=== PATIENT | male | born 1955 | race Caucasian/White ===

== ENCOUNTER 2021-12-23 08:15 | Observation (INO) ==
--- NOTE | 2021-12-20 14:44 | Anesthesiology Consultation ---
Date of Service December 20, 2021 Assessment & Plan (1) Encounter for pre-operative examination: - COVID screening: Per assessment on 12/20: Travel screen negative, no known COVID-19 positive contacts or current COVID-19 related symptoms. Surgeon arranging preop COVID testing. Awaiting results. - BP check: per nurse note from PCP office (12/05/21): "Pt here today for bp check.Pt refused to wait 5 mins after being brought back the [facility].. today's bp was 178/88, pulse 88. Pt refused to stay until I checked w/ provider as he was in a hurry.. He states he has not taken Amlodipine for past week. He states this makes him feel "antsy" and cannot take it. Apparently his insurance would no longer pay for bp med that worked for him and he was made to try this." Spoke with patient 12/20/21. He says that since that BP check, he was able to go back on his previous BP med that he was well controlled on for several years (was stopped temporarily d/t insurance coverage issues). Since restarting olmesartan, patient reports home BP readings have been significantly improved. Chart Review Chart Review: Acceptable Risk for Surgery and Patient NOT seen in Pre Admission Testing History Surgery Operation Date: 12/23/21 10:40 Proposed Procedures p Right Total Knee Revision - Дмитрий Rose MD Height/Weight Height: 5 ft 6 in Weight: 79.832 kg Allergies Allergy/AdvReac Type Severity Reaction Status Date / Time etodolac Allergy Unknown Itchy, Verified 12/20/21 14:31 diarrhea Penicillins Allergy Unknown Itchy Verified 12/20/21 14:31 Medications Home Medications Medication Instructions Recorded Confirmed Last Taken sulindac 150 mg tablet 150 mg PO BID #180 tab 08/31/21 12/20/21 Unknown kgtxghc-[id number]-bxtplgnx 250 1 tab PO Q6H PRN 12/20/21 12/20/21 Unknown mg-250 mg-65 mg tablet (Excedrin Migraine) ibuprofen 200 mg capsule 400 - 800 mg PO Q6H PRN 12/20/21 12/20/21 Unknown olmesartan 20 mg tablet (Benicar) 20 mg PO QAM 12/20/21 12/20/21 Unknown Past Medical History Medical History Arthritis Dyslipidemia Fatty liver H/O renal calculi Passed without intervention, no recent issues History of COVID-19 Dx 05/18/21 [facility] > symptoms at time: loss of smell, fever, SOB > resolved Hypertension Migraine HX PVC (premature ventricular contraction) Remote hx 2+ years ago s/p unremarkable stress echo, no recent issues Tremor Right hand, no definitive etiology per previous neurology evaluation Vertigo HX Past Family History Family History Sister Myocardial infarction Family history of diabetes mellitus Father Bladder cancer Family history of diabetes mellitus Denies family history of Ovarian cancer Prostate cancer Breast cancer Colorectal cancer Past Surgical History Surgical History H/O arthroscopy of knee right H/O colonoscopy H/O thumb surgery Partial amputation repair History of cholecystectomy History of total right knee replacement S/P appendectomy Social History Smoking Status: Never smoker Do You Dip or Chew Tobacco: No Hx Alcohol Use: No Hx Substance Use: No substance use type: does not use Lab Results Anesthesia Preop Results Results Anesthesia Widget: WBC 5.50 K/uL (4.8-10.8) 12/05/21 Hgb 16.4 g/dL (14.0-18.0) 12/05/21 Hct 46.8 % (42-52) 12/05/21 Plt 189 K/uL (130-400) 12/05/21 Na 140 mmol/L (136-145) 12/05/21 K 3.5 mmol/L (3.5-5.1) 12/05/21 Cl 106 mmol/L (98-107) 12/05/21 CO2 26 mmol/L (21-32) 12/05/21 BUN 15 mg/dl (6-23) 12/05/21 Creat 1.02 mg/dl (0.6-1.4) 12/05/21 Glucose Level 97 mg/dl (70-99(Fasting)) 12/05/21 PT 10.9 Seconds (9.0-12.0) 12/05/21 INR 1.0 (0.9-1.1) 12/05/21 Blood Type AB Positive 12/05/21 Antibody Screen NEGATIVE 12/05/21 Testing Electrocardiogram Date: 04/28/21 Findings:+ NSR @ (69bpm) Normal EKG per cardio. Chest X-Ray Date: 04/28/21 Findings:+ NAD Rounded nodular opacity projects over the left lung base measuring 12 mm is suggestive of a probable nipple shadow. Stress Test Date: 03/21/19 Type:exercise Resting LV Function:normal Valvular Disease:no significant valvular disease Negative exercise stress echocardiogram and EKG for ischemia at 89% MPHR. Normal BP response with exercise. Ventricular ectopy developing during exercise. This proceeded to ventricular bigeminy. At peak exercise the ventricular ectopy ceased. No significant ventricular ectopy in recovery phase. Rare PVCs in the later stages of recovery. Ventricular ectopic he was asymptomatic. Mild concentric LVH; grade 1 diastolic dysfunction. Normal chamber dimensions.
[~2021-12-23 08:15] MED LIST: ACETAMINOPHEN 500 MG TAB PO SCH; BUPIVACAINE 0.5 % 5 MG/1 ML PF 10ML VIAL ONE; BUPIVACAINE LIPOSOME/PF 266 MG, BUPIVACAINE/EPINEPHRINE 50 ML, SODIUM CHLORIDE 0.9% 30 ... INFIL SCH; EPINEPHrine INJ 1 MG/ML AMP ONE; FAMOTIDINE 20 MG TAB PO SCH; GABAPENTIN 300 MG CAP PO SCH; LR 500ML BOLUS, THEN 15ML/HR IV SCH; LR 60ML/HR IV SCH; METOCLOPRAMIDE HCL 10 MG TABLET PO SCH; ROPIVACAINE 0.5% 5 MG/ML 30 ML VIAL ONE; Scopolamine 1 MG TDSY TD SCH; TRANEXAMIC ACID 1,000 MG **IV Intra-op IV SCH; ceFAZolin 2000MG 2,000 MG/15 ML SYR IV SCH
--- NOTE | 2021-12-23 08:54 | History & Physical Bridge Note ---
Date of Service December 23, 2021 History & Physical Bridge Note I have examined the patient, reviewed the History & Physical and in the interval since the performance of the History & Physical I have noted the following changes of clinical significance: no changes noted
[2021-12-23] MEDS ORDERED: MIDAZOLAM HCL 1 MG/ML 2ML VIAL ONE (09:45)
[2021-12-23] MEDS ORDERED: fentaNYL citrate 100 MCG/2 ML VIAL ONE (09:46)
[2021-12-23] MEDS ORDERED: VANCOMYCIN HCL 1000MG/20ML VIAL ONE (11:16)
[2021-12-23] MEDS ORDERED: SODIUM CHLORIDE 0.9% PF 50 ML VIAL ONE (11:16)
[2021-12-23] MEDS ORDERED: BUPIVACAINE LIPOSOME 1.3% 266 MG/20 ML VIAL ONE (11:17)
[2021-12-23] MEDS ORDERED: EPINEPHrine INJ 1 MG/ML AMP ONE (11:18)
[2021-12-23] MEDS ORDERED: BUPIVACAINE 0.25% 30 ML VIAL ONE (11:18)
[2021-12-23] MEDS ORDERED: PROPOFOL IV EMULSION 10 MG/ML 20 ML VIAL IV ONE (12:35)
[2021-12-23] MEDS ORDERED: ATROPINE SULFATE 0.1 MG/ML 10ML SYR IV PRN (13:10)
[2021-12-23] MEDS ORDERED: ePHEDrine sulfate 50 MG/ML AMP IV PRN (13:10)
[2021-12-23] MEDS ORDERED: KETOROLAC 30 MG/ML VIAL ONE (13:33)
--- NOTE | 2021-12-23 14:20 | Operative Report ---
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 There is moderate synovitis at best. The tibial tray was clearly loose and debonded from the underlying cement distally. The femoral component and the patella components. Well fixed. Specimens Right knee synovium sent for frozen section. Right knee joint fluid sent for stat Gram stain aerobic and anaerobic culture. Anesthesia Type Spinal MAC Complications none Disposition Accompanied Patient To Recovery: No Indications Patient is a 66-year-old gentleman now about 7 and half years out from right knee replacement. He did pretty well for the first 6 years later the past year to year and a half he has developed pain discomfort and swelling in his knee. X-rays showed loosening of the tibial tray. He had an extensive infectious work-up on 2 separate occasions which was all negative. He failed conservative care. The elected proceed with revision of the knee. Was felt that just the tibial component was loose. Description of Procedure The patient was taken the operating, identified, placed in the operating table supine position protectors were properly padded. IV antibiotics are by by the anesthesia team. A spinal anesthetic been implemented holding area. Esqueda cath was placed in sterile fashion. Right thigh tourniquet was then placed in the right lower extremities and prepped draped in usual sterile fashion. The right leg was elevated exsanguinated with use of an Esmarch in terms playset 3 mmHg. An anterior approach of the right knee was then performed using the previous incision. Sharp dissection carried through subcutaneous this down the extensor mechanism. Medial parapatellar arthrotomy incision was made. Some subperiosteal dissection was carried out medially. I did a complete synovectomy of the suprapatellar pouch along with the medial lateral gutters. We did send the synovium for frozen section which revealed no polys per high-power field. We did send some fluid off for stat Gram stain and aerobic and anaerobic culture. The knee was then flexed. The polyethylene was removed. I then examined the femoral component and appeared very well fixed. There is no signs of loosening. We exposed the tibia. It was clearly loose. This was removed without difficulty. I then spent some time chipping away and moving removing the retained cement in the tibia. Once this was all removed we went to preparing the tibia. The tibia was entered with the 10 mm reamer. I then reamed up to a size 15. The reamer was left in place and the cutting guide was placed. This was cut essentially flush with the most deficient aspect the posterior medial tibial plateau. This did take a fairly large piece off laterally. Great care was taken to protect the patella tendon insertion. We then sized the tibia to a size 71. It was prepared for a 2.5 mm offset stem with a small black cruciate wing. We then trialed the knee in the was fairly lax and the gap was fairly large so I did place 5 mm augments on both sides of the tibia. Doing this the 16mm insert fit most appropriately. We elect to place these implants. All trial implants were removed. I irrigated the wound extensively. A double batch of Palacos G cement was mixed with a additional gram of vancomycin to the revision surgery. A Biomet size 71 tibial tray with a 15 x 80 mm offset stem with a 2.5 mm offset and a small cruciate wing was then placed. This was brought in to full extension after we placed a a 16 mm posterior stabilized polyethylene trial. We held the knee in extension total cement hardened. Final cement check was then performed. We did check this again and then removed the trial poly and placed a permanent poly-. The end subcutaneous is in deep tissues were then injected with a total of 100 cc of a combination of 20 cc of Exparel, 30 cc normal saline, 50 cc of quarter percent Marcaine with epinephrine. Patient did receive 1 g tranexamic acid. The tourniquet was then let down for final turn time 91 minutes. Hemostasis assured use electrocautery. The wounds once again irrigated. The patella tracked nicely. I then repaired the extensor mechanism with a combination 1 PDS suture #1 Vicryl suture in a [id number] fashion. The extensor mechanism checked found to be intact with subcutaneous tissue then closed with 2 Dexon suture in a buried knot fashion skin was closed skin kristen. Leg was then cleaned and dried a sterile dressing with Xeroform, 4 fours, sterile cast padding, Calderon bandage were applied. Patient then transferred to the recovery room in stable condition. Patient tolerated procedure well and there were no complications. Markie Caballero, my physician paperhanger assistant, was present for the entire procedure. His assistance was essential and required for appropriate patient positioning, prepping and draping, surgical exposure, performing the technical details of the operation, placement the implants, closure of the wound, and placement of the sterile bandage. I attest to the content of the Intraoperative Record and any orders documented therein. Any exceptions are noted below.
--- NOTE | 2021-12-23 14:46 | Anesthesiology Progress Note ---
Date of Service December 23, 2021 Anesthesia Post Procedure Vital Signs Vital Signs: Temp Pulse Pulse Resp BP Pulse Ox 12/23/21 14:40 92 H 15 132/64 94 12/23/21 14:30 85 17 116/62 91 12/23/21 14:20 86 15 112/59 L 94 12/23/21 14:10 36.2 C L 90 12 115/53 L 94 12/23/21 09:06 36.8 C 80 20 157/84 H 97 12/23/21 08:49 36.8 C Transfer of Care Handoff Completed per policy Notes Mental Status: alert / awake / arousable Patient Amnestic to Procedure: Yes Nausea / Vomiting: adequately controlled Pain: adequately controlled Airway Patency, RR, SpO2: stable & adequate BP & HR: stable & adequate Hydration State: stable & adequate Neuraxial Anesthesia: was administered and sensory block is resolving Anesthetic Complications: no major complications apparent
--- NOTE | 2021-12-23 14:51 | XRay Report ---
XR knee RT 1 or 2V routine CLINICAL HISTORY: Postoperative evaluation. COMPARISON: Knee radiographs December 05, 2021. FINDINGS: Alignment of the right knee arthroplasty is noted. Revision of the tibial component is not ed. There is no periprosthetic fracture or unexpected radiopaque foreign body. Skin kristen are prese nt. IMPRESSION: Expected findings following revision right knee arthroplasty. ACT 112: Negative or not required by law. Electronically signed by: Zafar Baca M.D. 12/23/2021 2:49 PM
[2021-12-23] MEDS ORDERED: HYDROmorphone INJ 0.5 MG/0.5 ML SYR IV PRN (15:31)
[2021-12-23] MEDS ORDERED: NALOXONE HCL 0.4 MG/1 ML VIAL/CARP IV PRN (15:31)
[2021-12-23] MEDS ORDERED: ONDANSETRON INJ 2 MG/ML 2 ML VIAL IV PRN (15:31)
[2021-12-23] MEDS ORDERED: METOCLOPRAMIDE HCL INJ 5 MG/ML 2 ML VIAL IV PRN (15:31)
[2021-12-23] MEDS ORDERED: ONDANSETRON 4 MG OD TAB PO PRN (15:31)
[2021-12-23] MEDS ORDERED: ALUMINUM/MAGNESIUM SUSP 30 ML UDC PO PRN (15:31)
[2021-12-23] MEDS ORDERED: NON-FORMULARY MEDICATION (Aspirin-Acetaminophen-Caffeine [Excedrin Migraine] 250-250-65 mg PO PRN (15:31)
[2021-12-23] MEDS ORDERED: bisacodyL 10 MG SUPP PR PRN (15:31)
[2021-12-23] MEDS ORDERED: MAGNESIUM HYDROXIDE SUSP 30 ML UDC PO PRN (15:31)
[2021-12-23] MEDS: SODIUM CHLORIDE 0.9% 1000ML 1,000 ML IV SCH (16:09)
[2021-12-23] MEDS: Scopolamine CHECK PATCH PLACEMENT SCH ×2 (16:10→23:16)
[2021-12-23] MEDS: ceFAZolin 2000MG 2,000 MG/15 ML SYR IV SCH (17:23)
[2021-12-23] MEDS: ASCORBIC ACID 500 MG TAB PO SCH (17:23)
[2021-12-23] MEDS: KETOROLAC TROMETHAMINE 15 MG/ML VIAL IV SCH ×2 (17:25→23:15)
--- NOTE | 2021-12-23 17:28 | Progress Notes ---
DATE OF SERVICE: 12/23/2021 Postop check. SUBJECTIVE: A 66-year-old gentleman status post right knee revision arthroplasty for aseptic tibial loosening. He is doing well. Has some jojq-gh-obqjgbuw pain. No chest pain or shortness of breath. Not feeling dizzy or lightheaded. OBJECTIVE: VITAL SIGNS: Temperature 36.5. Vital signs are stable. GENERAL: Shows a pleasant middle-aged male. He is sitting up in bed, looks quite comfortable. LUNGS: Clear to auscultation. HEART: Has a regular rate and rhythm. ABDOMEN: Soft, nontender, nondistended. EXTREMITIES: Grossly neurovascularly intact except as follows: Examination of the right leg reveals the leg to be well aligned. Toes are pink with brisk refill. He can dorsiflex and plantarflex his foot, but it is still just a little bit weak. X-RAYS: X-rays of the right knee from recovery room are reviewed. It shows a revision total knee re placement with a tibial stem. Component alignment looks good. No signs of problems. ASSESSMENT: A 66-year-old gentleman postoperative from a right knee revision for aseptic tibial loos ening. Doing well. His pain is controlled. He is neurologically intact. He is still a little bit weak, but nerve function seems to be returning appropriately. PLAN: 1. DVT prophylaxis includes thigh-high TEDs, SCDs, and aspirin twice a day. 2. PT, OT, weightbear as tolerated. Right total knee protocol. 3. Pain control, doing okay with current pain regimen. 4. IV antibiotics x24 hours. 5. Disposition: Plan to discharge to home with some home health likely tomorrow if he does okay in therapy. Job ID: [id number]
[2021-12-23] MEDS: oxyCODONE HCL IR 5 MG TAB (IMMEDIATE RELEASE) PO PRN (18:26)
[2021-12-23] MEDS ORDERED: TRANEXAMIC ACID / 0.7% NACL 1,000 MG/100 ML BAG IV SCH (20:30)
[2021-12-23] MEDS: DOCUSATE SODIUM 100 MG CAP PO SCH (20:31)
[2021-12-23] MEDS: ASPIRIN 81 MG ECTAB PO SCH (20:32)
[2021-12-23] MEDS: TAPENTADOL HCL ER 50 MG TABCR PO SCH (20:34)
[2021-12-23] MEDS ORDERED: SENNA 8.6 MG TAB PO SCH (21:00)
[2021-12-23] MEDS: ACETAMINOPHEN 500 MG TAB PO SCH (21:16)
[2021-12-24] MEDS: SODIUM CHLORIDE 0.9% 1000ML 1,000 ML IV SCH (01:41)
[2021-12-24] MEDS: ceFAZolin 2000MG 2,000 MG/15 ML SYR IV SCH (04:13)
[2021-12-24 05:46] LABS: Hematocrit (blood only) 40.6 % (42-52); Mean Corpuscular Hgb Conc 34.5 g/dL (32-36); Mean Corpuscular Volume 92.9 fL (80-100); Mean Platelet Volume 11.1 fL (7.4-10.4); Platelet Count 160 K/uL (130-400); RDW Coefficient of Variation 12.1 % (11.5-14.5); RDW Standard Deviation 41.3 fL (36.4-46.3); Red Blood Count 4.37 M/uL (4.7-6.1); White Blood Count 6.45 K/uL (4.8-10.8)
[2021-12-24 06:12] LABS: BUN Creatinine Ratio 18.4 (10-20); Creatinine Clr Calc Pharmacy 82.6 ml/min; Est GFR (African American) 87.3 ml/min; Est GFR (Non-African American) 75.3 ml/min; Potassium 3.9 mmol/L (3.5-5.1)
[2021-12-24] MEDS: ACETAMINOPHEN 500 MG TAB PO SCH (06:18)
[2021-12-24] MEDS: KETOROLAC TROMETHAMINE 15 MG/ML VIAL IV SCH ×2 (06:18→11:22)
[2021-12-24] MEDS ORDERED: dexAMETHasone 10 MG in SYRINGE 0 ML IV SCH (08:00)
[2021-12-24] MEDS: Scopolamine CHECK PATCH PLACEMENT SCH (08:36)
[2021-12-24] MEDS: ASPIRIN 81 MG ECTAB PO SCH (08:36)
[2021-12-24] MEDS: DOCUSATE SODIUM 100 MG CAP PO SCH (08:36)
[2021-12-24] MEDS: ASCORBIC ACID 500 MG TAB PO SCH (08:36)
[2021-12-24] MEDS: TAPENTADOL HCL ER 50 MG TABCR PO SCH (08:36)
[2021-12-24] MEDS ORDERED: DOCUSATE SODIUM/SENNA 50/8.6MG TAB PO SCH (09:00)
[2021-12-24] MEDS ORDERED: TAMSULOSIN HCL 0.4 MG CAP PO SCH (09:00)
[2021-12-24] MEDS ORDERED: OLMESARTAN MEDOXOMIL 20 MG TAB PO SCH (09:00)
[2021-12-24] MEDS ORDERED: MULTIVITAMIN TAB PO SCH (09:00)
--- NOTE | 2021-12-24 09:01 | Progress Notes ---
DATE OF SERVICE: 12/27/2021. SUBJECTIVE: A 66-year-old gentleman, postoperative day 1 from right knee revision of a loose tibial component. He is doing well this morning. Had good night. Pain is controlled. No chest pain or sh ortness of breath. Not feeling dizzy or lightheaded. OBJECTIVE: VITAL SIGNS: Temperature is 36.5. Vital signs are stable. GENERAL: Shows a pleasant middle-aged male. He is lying in bed, looks quite comfortable. EXTREMITIES: Examination of the right leg reveals the leg to be well aligned. Dressing is clean, dr y and intact. No drainage. He can do a straight leg raise. He can dorsiflex and plantarflex his fo ot appropriately. LABORATORY DATA: Hemoglobin 14.0. Hematocrit 40.6. Electrolytes are stable. Gram stains show many polys, but no organisms seen. ASSESSMENT: A 66-year-old gentleman postoperative day 1 from a right knee revision for a loose tibia l component, doing well. Pain is controlled. He is neurologically intact. The suspicion for infect ion is low. PLAN: 1. DVT prophylaxis includes thigh-high TEDs, SCDs, and aspirin twice a day. 2. PT, OT, weightbear as tolerated. Right total knee protocol. 3. Pain control, doing well with current pain regimen. 4. Disposition: Plan is to discharge to home after therapy today. Job ID: [id number]
[2021-12-24] MEDS: oxyCODONE HCL IR 5 MG TAB (IMMEDIATE RELEASE) PO PRN (11:23)
--- NOTE | 2021-12-28 11:20 | Discharge Summary ---
Date of Service December 28, 2021 Discharge Data Procedures Performed Operation Date: 12/23/21 10:40 Actual Procedures p Right Total Knee Revision with Tibial Components(Right) - Дмитрий Rose MD Hospital Course (1) Loosening of prosthesis of right total knee replacement: This patient is a 66 year old patient admitted on 12/23/21 and underwent revision of his tibial component. He tolerated the procedure well and there were no complications. Transferred to the PACU post op and later to the orthopedic floor for further care. He was given ancef for antibiotic prophylaxis. He was also given NOLA stockings, SCDs, and aspirin for DVT prophylaxis. Hemoglobin, hematocrit, and vital signs were monitored during his hospital stay and remained stable. Did not require any blood transfusions. There were no complications during his hospital stay. By post op day #1 the patient was tolerating a regular diet, pain was reasonably controlled with oral pain medicine, and he was participating in physical therapy. On post op day #1 the patient was discharged home and set up with home health care. He was given printed discharge instructions including prescriptions for extra strength tylenol, aspirin, toradol, zofran, flomax, and oxycodone. Continue physical therapy, weight bearing as tolerated. Continue NOLA stockings. Follow up approximately 2 weeks post op or sooner if there are problems or concerns. 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
== END 2021-12-24 12:35 | disposition home health service (06) ==
LOC: 3E 08:15 → ASU 08:15